=== PATIENT | female | born 1980 | race Caucasian/White ===

== ENCOUNTER 2018-02-22 19:39 | Emergency (ER) | payer OTHER ==
[2018-02-22 19:47] VITALS: TEMP 97.6
[2018-02-22] MEDS ORDERED: SODIUM CHLORIDE 0.9% 2,000 ML IV ONE (20:31)
--- NOTE | 2018-02-22 20:32 | ED ---
General Adult HPI - General Chief complaint: Extremity Problem,Nontraumatic Stated complaint: rt shoulder and scapula pain Time Seen by Provider: 02/22/18 19:56 Source: patient Mode of arrival: ambulatory Limitations: no limitations - History of Present Illness Initial comments: Patient is a 37-year-old female approximately 7 weeks by last menstrual period presents with a chief complaint of right shoulder pain. Onset was about an hour ago. Patient states that she has a sharp pain that starts in her shoulder and radiates to her right shoulder blade. Patient cannot identify any inciting incidences. There are no aggravating or alleviating factors. The patient admits to some pain with deep breathing. She admits to some nausea but no vomiting. There are no other aggravating or alleviating factors. Timing is constant. Patient has a significant medical history of coronary artery disease on both sides of her family, and states that her biological brother of a heart attack at 31 years old. - Related Data Home Medications Medication Instructions Recorded Confirmed Venlafaxine HCl [Effexor XR] 150 mg PO DAILY 02/22/18 02/22/18 Allergies Allergy/AdvReac Type Severity Reaction Status Date / Time adhesive tape Allergy Rash/Hives Verified 02/22/18 19:50 amoxicillin Allergy Rash/Hives Verified 02/22/18 19:50 clindamycin Allergy Rash/Hives Verified 02/22/18 19:50 hydromorphone [From Dilaudid] Allergy Nausea & Verified 02/22/18 19:50 Vomiting meperidine [From Demerol] Allergy Nausea & Verified 02/22/18 19:50 Vomiting metronidazole [From Flagyl] Allergy Rash/Hives Verified 02/22/18 19:50 morphine Allergy Nausea & Verified 02/22/18 19:50 Vomiting nickel Allergy Rash/Hives Verified 02/22/18 19:50 Penicillins Allergy Rash/Hives Verified 02/22/18 19:50 pineapple Allergy Anaphylaxis Verified 02/22/18 19:50 Sulfa (Sulfonamide Allergy Rash/Hives Verified 02/22/18 19:50 Antibiotics) sulfamethoxazole Allergy Rash/Hives Verified 02/22/18 19:50 [From Bactrim] trimethoprim [From Bactrim] Allergy Rash/Hives Verified 02/22/18 19:50 Review of Systems ROS Statement: Those systems with pertinent positive or pertinent negative responses have been documented in the HPI. ROS Other: All systems not noted in ROS Statement are negative. Musculoskeletal: Reports: arthralgia Past Medical History Past Medical History: GERD/Reflux, Hyperlipidemia, Hypertension Additional Past Medical History / Comment(s): Hypoglycemia, Endometriosis, Septate Uterus, Anemia History of Any Multi-Drug Resistant Organisms: None Reported Past Surgical History: Section, Tonsillectomy Past Psychological History: ADD/ADHD, Anxiety Smoking Status: Current every day smoker Past Alcohol Use History: None Reported Past Drug Use History: None Reported General Exam Limitations: no limitations General appearance: alert, in no apparent distress Head exam: Present: atraumatic, normocephalic Eye exam: Present: normal appearance ENT exam: Present: normal exam Respiratory exam: Present: normal lung sounds bilaterally. Absent: respiratory distress, wheezes Cardiovascular Exam: Present: normal rhythm, tachycardia GI/Abdominal exam: Present: soft, tenderness (Patient has mild tenderness to palpation in the right upper quadrant.). Absent: distended Rectal exam: Present: deferred Extremities exam: Present: normal inspection, full ROM Back exam: Present: normal inspection Neurological exam: Present: alert, oriented X3 Psychiatric exam: Present: normal affect, normal mood Skin exam: Present: warm, dry, intact Course Vital Signs 02/22/18 02/22/18 19:42 20:47 Temperature 97.6 F Pulse Rate 109 H 82 Respiratory 18 16 Rate Blood Pressure 138/93 130/74 O2 Sat by Pulse 100 Oximetry Medical Decision Making - Medical Decision Making Patient presents to the chief complaint of right shoulder pain. On initial evaluation, patient is mildly tachycardic otherwise vital signs are stable. EKG performed at 1956 shows sinus tachycardia with a rate of 106 bpm. EKG is otherwise unremarkable. Patient states that she is about 7 weeks' by last menstrual period. She has not had any confirmatory imaging or blood tests. 11:24 PM Lab evaluation of this patient is unremarkable. test is negative, d- dimer is negative. Initial troponin is negative. I went to reevaluate the patient and found that she was not in her room and all of her monitors have been disconnected. Several times remade to find the patient within the emergency department that were unsuccessful. Patient eloped prior to completion of service. - Lab Data Result diagrams: 02/22/18 20:32 02/22/18 20:32 Lab Results 02/22/18 02/22/18 02/22/18 Range/Units 20:32 20:32 20:32 WBC 10.3 (3.8-10.6) k/uL RBC 4.53 (3.80-5.40) m/uL Hgb 11.8 (11.4-16.0) gm/dL Hct 36.8 (34.0-46.0) % MCV 81.2 (80.0-100.0) fL MCH 26.2 (25.0-35.0) pg MCHC 32.2 (31.0-37.0) g/dL RDW 14.4 (11.5-15.5) % Plt Count 480 H (150-450) k/uL Neutrophils % 66 % Lymphocytes % 24 % Monocytes % 6 % Eosinophils % 2 % Basophils % 0 % Neutrophils # 6.8 (1.3-7.7) k/uL Lymphocytes # 2.5 (1.0-4.8) k/uL Monocytes # 0.6 (0-1.0) k/uL Eosinophils # 0.2 (0-0.7) k/uL Basophils # 0.0 (0-0.2) k/uL Hypochromasia Slight D-Dimer <0.17 (<0.60) mg/L FEU Sodium 144 (137-145) mmol/L Potassium 4.3 (3.5-5.1) mmol/L Chloride 106 (98-107) mmol/L Carbon Dioxide 26 (22-30) mmol/L Anion Gap 12 mmol/L BUN 13 (7-17) mg/dL Creatinine 0.75 (0.52-1.04) mg/dL Est GFR (CKD-EPI)AfAm >90 (>60 ml/min/1.73 sqM) Est GFR (CKD-EPI)NonAf >90 (>60 ml/min/1.73 sqM) Glucose 100 H (74-99) mg/dL Calcium 9.3 (8.4-10.2) mg/dL Total Bilirubin 0.2 (0.2-1.3) mg/dL AST 20 (14-36) U/L ALT 26 (9-52) U/L Alkaline Phosphatase 105 (38-126) U/L Troponin I (0.000-0.034) ng/mL Total Protein 7.0 (6.3-8.2) g/dL Albumin 4.1 (3.5-5.0) g/dL Lipase 203 (23-300) U/L HCG, Quant <2.4 mIU/mL 02/22/18 Range/Units 20:32 WBC (3.8-10.6) k/uL RBC (3.80-5.40) m/uL Hgb (11.4-16.0) gm/dL Hct (34.0-46.0) % MCV (80.0-100.0) fL MCH (25.0-35.0) pg MCHC (31.0-37.0) g/dL RDW (11.5-15.5) % Plt Count (150-450) k/uL Neutrophils % % Lymphocytes % % Monocytes % % Eosinophils % % Basophils % % Neutrophils # (1.3-7.7) k/uL Lymphocytes # (1.0-4.8) k/uL Monocytes # (0-1.0) k/uL Eosinophils # (0-0.7) k/uL Basophils # (0-0.2) k/uL Hypochromasia D-Dimer (<0.60) mg/L FEU Sodium (137-145) mmol/L Potassium (3.5-5.1) mmol/L Chloride (98-107) mmol/L Carbon Dioxide (22-30) mmol/L Anion Gap mmol/L BUN (7-17) mg/dL Creatinine (0.52-1.04) mg/dL Est GFR (CKD-EPI)AfAm (>60 ml/min/1.73 sqM) Est GFR (CKD-EPI)NonAf (>60 ml/min/1.73 sqM) Glucose (74-99) mg/dL Calcium (8.4-10.2) mg/dL Total Bilirubin (0.2-1.3) mg/dL AST (14-36) U/L ALT (9-52) U/L Alkaline Phosphatase (38-126) U/L Troponin I <0.012 (0.000-0.034) ng/mL Total Protein (6.3-8.2) g/dL Albumin (3.5-5.0) g/dL Lipase (23-300) U/L HCG, Quant mIU/mL Disposition Clinical Impression: Shoulder pain, acute Disposition: Left Against Medical Advice Condition: Good Is patient prescribed a controlled substance at d/c from ED?: No Referrals: None,Stated [Primary Care Provider] - 1-2 days
[2018-02-22 20:53] LABS: Basophils % (A) 0 %; Eosinophils # (A) 0.2 k/uL (0-0.7); Eosinophils % (A) 2 %; HCT 36.8 % (34.0-46.0); HGB 11.8 gm/dL (11.4-16.0); Hypochromasia Slight; Lymphocytes # (A) 2.5 k/uL (1.0-4.8); Lymphocytes % (A) 24 %; MCH 26.2 pg (25.0-35.0); MCHC 32.2 g/dL (31.0-37.0); MCV 81.2 fL (80.0-100.0); Mean Platelet Volume 6.8; Monocytes # (A) 0.6 k/uL (0-1.0); Monocytes % (A) 6 %; Neutrophils # (A) 6.8 k/uL (1.3-7.7); Neutrophils % (A) 66 %; Platelet Count 480 k/uL (150-450); RBC 4.53 m/uL (3.80-5.40); RDW 14.4 % (11.5-15.5); WBC 10.3 k/uL (3.8-10.6)
[2018-02-22 21:07] LABS: ALT 26 U/L (9-52); AST 20 U/L (14-36); Albumin 4.1 g/dL (3.5-5.0); Alkaline Phosphatase 105 U/L (38-126); Anion Gap 12 mmol/L; Blood Urea Nitrogen 13 mg/dL (7-17); Calcium 9.3 mg/dL (8.4-10.2); Carbon Dioxide 26 mmol/L (22-30); Chloride 106 mmol/L (98-107); Glucose 100 mg/dL (74-99); Lipase 203 U/L (23-300); Potassium 4.3 mmol/L (3.5-5.1); Sodium 144 mmol/L (137-145); Total Bilirubin 0.2 mg/dL (0.2-1.3)
[2018-02-22 21:22] LABS: HCG,Quantitative Serum <2.4 mIU/mL
[2018-02-22 21:28] VITALS: BP 130/74; PULSE 82; RESP 16
--- NOTE | 2018-02-22 21:48 | XR ---
EXAMINATION TYPE: XR chest 2V DATE OF EXAM: 02/22/2018 COMPARISON: NONE HISTORY: Neck pain chest pain TECHNIQUE: Frontal and lateral views of the chest are obtained. FINDINGS: Heart and mediastinum are normal. Lungs are clear. Diaphragm is normal. Bony thorax appear s normal. IMPRESSION: Normal chest
== END 2018-02-22 22:22 | disposition left against medical advice (07) ==
LOC: EC 19:39
DX: M25.511 Pain in right shoulder (principal); R00.0 Tachycardia, unspecified; R11.0 Nausea; F41.9 Anxiety disorder, unspecified; F17.200 Nicotine dependence, unspecified, uncomplicated; Z79.899 Other long term (current) drug therapy; Z88.0 Allergy status to penicillin; Z88.1 Allergy status to other antibiotic agents; Z88.2 Allergy status to sulfonamides; Z88.5 Allergy status to narcotic agent; Z91.018 Allergy to other foods; Z91.048 Other nonmedicinal substance allergy status
CPT/HCPCS: 36415; 71046; 80053; 83690; 84484; 84702; 85025; 85379; 93005; 99284

== ENCOUNTER 2019-02-05 02:16 | Emergency (ER) | payer OTHER ==
[2019-02-05 03:03] VITALS: BP 153/102; PULSE 89; RESP 20; TEMP 98.1
--- NOTE | 2019-02-05 03:27 | ED ---
Psych HPI - General Source: patient Mode of arrival: ambulatory <Paulette Klein - Last Filed: 02/05/19 04:59> <Nahum Luna - Last Filed: 02/05/19 08:53> - General Chief Complaint: Psychiatric Symptoms Stated Complaint: Mental Health Time Seen by Provider: 02/05/19 03:06 - History of Present Illness Initial Comments: 38-year-old female patient presents to the emergency department today accompanied by [place] for suicidal ideation. Patient states her and her got into an argument and she accidentally that she was going to kill herself. Patient states her plan was to hang herself. Patient states he is not currently feeling suicidal. Patient denies any history of suicide attempt. Denies any previous mental health admissions. States that she does have bipolar disorder and does take Effexor for this. Patient denies any alcohol or drug use. Denies any hallucinations. Denies any homicidal i deation. She denies any current physical symptoms or concerns. Patient denies any recent rash, fever, chills, shortness breath, chest pain, abdominal pain, nausea, vomiting, diarrhea, constipation, back pain, numbness, tingling, dizziness, weakness, hematuria, dysuria, urinary urgency, urinary frequency, headache, visual changes, or any other complaints. (Paulette Klein) - Related Data Home Medications Medication Instructions Recorded Confirmed Venlafaxine HCl [Effexor XR] 150 mg PO DAILY 02/22/18 02/05/19 Dextroamphetamine/Amphetamine 25 mg PO QAM 02/05/19 02/05/19 [Adderall Xr] Spironolactone [Aldactone] 02/05/19 02/05/19 Topiramate [Topamax] 50 mg PO BID 02/05/19 02/05/19 Allergies Allergy/AdvReac Type Severity Reaction Status Date / Time adhesive tape Allergy Rash/Hives Verified 02/22/18 19:50 amoxicillin Allergy Rash/Hives Verified 02/22/18 19:50 clindamycin Allergy Rash/Hives Verified 02/22/18 19:50 hydromorphone [From Dilaudid] Allergy Nausea & Verified 02/22/18 19:50 Vomiting meperidine [From Demerol] Allergy Nausea & Verified 02/22/18 19:50 Vomiting metronidazole [From Flagyl] Allergy Rash/Hives Verified 02/22/18 19:50 morphine Allergy Nausea & Verified 02/22/18 19:50 Vomiting nickel Allergy Rash/Hives Verified 02/22/18 19:50 Penicillins Allergy Rash/Hives Verified 02/22/18 19:50 pineapple Allergy Anaphylaxis Verified 02/22/18 19:50 Sulfa (Sulfonamide Allergy Rash/Hives Verified 02/22/18 19:50 Antibiotics) sulfamethoxazole Allergy Rash/Hives Verified 02/22/18 19:50 [From Bactrim] trimethoprim [From Bactrim] Allergy Rash/Hives Verified 02/22/18 19:50 Review of Systems ROS Other: All systems not noted in ROS Statement are negative. <Paulette Klein - Last Filed: 02/05/19 04:59> ROS Other: All systems not noted in ROS Statement are negative. <Nahum Luna - Last Filed: 02/05/19 08:53> ROS Statement: Those systems with pertinent positive or pertinent negative responses have been documented in the HPI. Past Medical History Past Medical History: GERD/Reflux, Hyperlipidemia, Hypertension Additional Past Medical History / Comment(s): Hypoglycemia, Endometriosis, Septate Uterus, Anemia History of Any Multi-Drug Resistant Organisms: None Reported Past Surgical History: Section, Tonsillectomy Past Psychological History: ADD/ADHD, Anxiety Smoking Status: Current every day smoker Past Alcohol Use History: None Reported Past Drug Use History: None Reported <Paulette Klein - Last Filed: 02/05/19 04:59> General Exam Limitations: no limitations General appearance: alert, in no apparent distress, other (Physical well- developed, well-nourished adult female patient in no acute distress. Vital signs upon presentation are temperature 98.1F, pulse 89, respirations 20, blood pressure 153/102, pulse ox 100% on room air.) Eye exam: Present: normal appearance, PERRL, EOMI. Absent: scleral icterus, conjunctival injection, periorbital swelling ENT exam: Present: normal exam, normal oropharynx, mucous membranes moist Respiratory exam: Present: normal lung sounds bilaterally. Absent: respiratory distress, wheezes, rales, rhonchi, stridor Cardiovascular Exam: Present: regular rate, normal rhythm, normal heart sounds. Absent: systolic murmur, diastolic murmur, rubs, gallop, clicks GI/Abdominal exam: Present: soft, normal bowel sounds. Absent: distended, tenderness, guarding, rebound, rigid Neurological exam: Present: alert, oriented X3, CN II-XII intact Psychiatric exam: Present: normal affect, normal mood Skin exam: Present: warm, dry, intact, normal color. Absent: rash <Paulette Klein - Last Filed: 02/05/19 04:59> Course Vital Signs 02/05/19 02:57 Temperature 98.1 F Pulse Rate 89 Respiratory 20 Rate Blood Pressure 153/102 O2 Sat by Pulse 100 Oximetry Medical Decision Making <Paulette Klein - Last Filed: 02/05/19 04:59> <Nahum Luna - Last Filed: 02/05/19 08:53> - Medical Decision Making 38-year-old female patient presented to the emergency department today for psychiatric evaluation. Patient was petitioned by [place] police. Patient did threaten to commit suicide via text message to her . Her plan was to hang herself. She denied suicidal or homicidal ideation upon arrival. Patient was seen and evaluated by emergency psychiatric services. We are still waiting to hear back from the psychiatrist. Care of be handed over to my attending Dr. Sharma at 0500. (Paulette Klein) EPS evaluated the patient and determined the patient could be discharged home safely (Nahum Luna) - Lab Data Lab Results 02/05/19 Range/Units 03:16 Urine Opiates Screen Not Detected (NotDetected) Ur Oxycodone Screen Not Detected (NotDetected) Urine Methadone Screen Not Detected (NotDetected) Ur Propoxyphene Screen Not Detected (NotDetected) Ur Barbiturates Screen Not Detected (NotDetected) U Tricyclic Antidepress Not Detected (NotDetected) Ur Phencyclidine Scrn Not Detected (NotDetected) Ur Amphetamines Screen Detected H (NotDetected) U Methamphetamines Scrn Not Detected (NotDetected) U Benzodiazepines Scrn Not Detected (NotDetected) Urine Cocaine Screen Not Detected (NotDetected) U Marijuana (THC) Screen Not Detected (NotDetected) Disposition <Paulette Klein - Last Filed: 02/05/19 04:59> Is patient prescribed a controlled substance at d/c from ED?: No Time of Disposition: 08:53 <Nahum Luna - Last Filed: 02/05/19 08:53> Clinical Impression: Suicidal ideation, Situational depression Disposition: HOME SELF-CARE Condition: Good Referrals: Nonstaff,Physician [Primary Care Provider] - 1-2 days
[2019-02-05 04:36] LABS: Amphetamine Screen,Urine Detected (NotDetected); Barbiturate Screen,Urine Not Detected (NotDetected); Benzodiazepines Screen,Urine Not Detected (NotDetected); Cocaine Screen,Urine Not Detected (NotDetected); Methadone Screen, Urine Not Detected (NotDetected); Opiate Screen,Urine Not Detected (NotDetected); Oxycodone Screen, Urine Not Detected (NotDetected); Phencyclidine Screen,Urine Not Detected (NotDetected); Tricyclic Antidepressant,Urine Not Detected (NotDetected); Urn Cannabinoid Scrn Not Detected (NotDetected)
== END 2019-02-05 09:27 | disposition home or self-care (01) ==
LOC: EC 02:16
DX: F43.21 Adjustment disorder with depressed mood (principal); R45.851 Suicidal ideations; F31.9 Bipolar disorder, unspecified; F41.9 Anxiety disorder, unspecified; F90.9 Attention-deficit hyperactivity disorder, unspecified type; I10 Essential (primary) hypertension; F17.200 Nicotine dependence, unspecified, uncomplicated; Z88.0 Allergy status to penicillin; Z88.1 Allergy status to other antibiotic agents; Z88.2 Allergy status to sulfonamides; Z88.5 Allergy status to narcotic agent; Z91.018 Allergy to other foods; Z91.048 Other nonmedicinal substance allergy status
CPT/HCPCS: 51798; 80306; 99285

== ENCOUNTER → 2023-04-02 | Outpatient (CLI) | payer OTHER ==
--- NOTE | 2023-04-02 14:45 | MR ---
EXAMINATION TYPE: MR lumbar spine wo con DATE OF EXAM: 04/02/2023 12:15 PM COMPARISON: CT 09/10/2012. CLINICAL INDICATION:Female, 42 years old with history of M54.51; Hx of fractured tailbone and sciatic a, recent fall, low back pain into buttocks and left leg TECHNIQUE: Multi planar, multi sequence imaging was performed utilizing: T1-weighted, T2-weighted, a nd turbo inversion recovery imaging of the lumbar spine. IV Contrast:None. FINDINGS: Alignment: The lumbar vertebral bodies have preserved heights and alignment. Cord: The conus medullaris and the distal spinal cord appear unremarkable with regards to their signa l intensity and morphology. Bones/Discs: Bone signal is within normal limits. No abnormal bony edema on inversion recovery sequen toño. Intimal osteophyte formation present. Mild disc desiccation in the lower lumbar spine. Multileve l facet arthropathy is present. Perineural cysts are seen at the level of S2 is S3 and S3-S4 on the r ight. T12-L1: No evidence of significant spinal canal stenosis or neural foraminal stenosis. L1-L2: No evidence of significant spinal canal stenosis or neural foraminal stenosis. L2-L3: No evidence of significant spinal canal stenosis or neural foraminal stenosis. L3-L4: Central disc protrusion without significant spinal canal or neural foramina stenosis. No evide nce of significant spinal canal stenosis or neural foraminal stenosis. L4-L5: No evidence of significant spinal canal stenosis or neural foraminal stenosis. Posterior annul ar fissure. L5-S1: The disc is rounded posterior morphology without significant spinal canal stenosis. Facet join t arthropathy with mild neural foraminal stenosis. No significant spinal canal or neural foraminal stenosis in the remainder of the visualized levels. Other findings: Left renal cysts IMPRESSION: 1. No evidence for significant spinal canal stenosis. 2. L3-L4 central disc protrusion without evidence for significant spinal canal or neural foraminal s tenosis. 3. Minimal degeneration changes of the spine.
== END | disposition home or self-care (01) ==
LOC: RADMRIMAIN 11:08
PROVIDERS: ATTEND Physical Medicine & Rehabilitation
DX: M51.26 Other intervertebral disc displacement, lumbar region (principal); M47.816 Spondylosis without myelopathy or radiculopathy, lumbar region
CPT/HCPCS: 72148